=== PATIENT | male | born 1960 | race Caucasian/White ===

== ENCOUNTER 2022-10-15 21:19 | Inpatient (IN) ==
[2022-10-15] MEDS ORDERED: ALBUT/IPRATROP 3MG/0.5MG NEB 3 ML VIAL NEB STA ×2 (21:40→23:16)
--- NOTE | 2022-10-15 21:46 | Emergency Department Note ---
History of Present Illness General Chief complaint: Shortness of Breath/Dyspnea Stated complaint: SOB, COUGHING Time Seen by Provider: 10/15/22 21:31 History of Present Illness This 62-year-old presents to the ER complaining of epigastric heartburn discomfort and shortness of breath for the past 2 weeks steadily getting worse Location: Chest Quality: Short of breath Severity: Moderate Duration: Past few weeks Timing: Started few weeks ago Context: Symptoms got worse and patient came in Modifying factors: better with rest; worse with activity Patient states he initially started out feeling sick a few weeks ago but that is cleared up. He states he feels short of breath much more with activity. Patient denies abdominal pain, prior heart disease, blood clots in the past. He states that his legs are swollen but this is unchanged. Home Medications Medication Instructions Recorded Confirmed Type ibuprofen 200 mg tablet (Advil) 200 - 400 mg PO Q6H PRN Pain 05/20/21 10/15/22 History sildenafil (pulm.hypertension) 20 20 - 100 mg PO .COMPLEX #20 tabs 03/31/22 10/15/22 Rx mg tablet amlodipine 5 mg tablet 2.5 mg PO DAILY #30 tabs 04/14/22 10/15/22 Rx lisinopril 40 mg tablet 40 mg PO DAILY #30 tabs 07/28/22 10/15/22 Rx Allergies Allergy/AdvReac Type Severity Reaction Status Date / Time morphine Allergy Severe anaphalyaxi Verified 10/15/22 22:30 s Past Med/Surg History Medical History Acid reflux History of guy RLE Light headedness Vasovagal syncope 20 YEARS AGO Surgical History History of appendectomy History of skin graft History of umbilical hernia repair Family History Aunt Family history of diabetes mellitus Sister Family history of diabetes mellitus Grandfather Myocardial infarction Grandfather No problems noted. Grandmother Breast cancer Denies family history of Ovarian cancer Prostate cancer Colorectal cancer Social History Smoking Status: Current every day smoker Tobacco Type: Cigars Age Started Using Tobacco: 12; Age Quit Using Tobacco: 56; packs per day: 2; Cigarettes Per Day: 3-4 small cigars/day; Second Hand Exposure: Yes ( A CHILD); Hx Alcohol Use: Yes Alcohol type: beer Alcohol Intake Frequency: 4 or More x per/Week Hx Substance Use: No Preferred Language: South Korean Communication Ability: Effective Visual Impairment: No Limitations Hearing Ability: Normal Accredited Legal Secretary Required: No Beliefs That Will Affect Care: None marital status: Current Living Situation: Spouse current occupational status: employed 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 How many Children do You have: 4 Feels Safe at Home: Yes Childhood Exposure to Second-Hand Smoke: Yes caffeine: Yes during the past year weight has: remained stable Dental Care, Regularly: Yes Physical Activity Frequency: 1-2 Times per Week Seatbelt Use: sometimes Sunscreen Use: Yes (SOMETIMES) Assistive Devices: Glasses Review of Systems A total of 10 systems reviewed and were otherwise negative Physical Exam Vital Signs Vital Signs - 24 hr 10/15/22 21:21 10/15/22 21:52 10/15/22 21:52 Temperature 36.6 C Temperature Source Temporal Artery Scan Pulse Rate 85 Respiratory Rate 20 Respiratory Effort / Characteristics Non-Labored Spontaneous Respiratory Depth Normal Blood Pressure 169/92 H Blood Pressure Mean 117 Blood Pressure Position Sitting Pulse Oximetry 95 97 97 Oxygen Delivery Method Room Air Room Air Room Air Oxygen Flow Rate 0 Sepsis Recent Fever Within 48 Hours No Sepsis New/Unexplained Change in Mental Status N/A Sepsis Action Taken by Nursing No Action Required VITALS: Vitals are noted on the nurse's note and reviewed by myself. Vital signs stable. GENERAL: Pleasant gentleman speaking in full sentences, in no acute distress, nondiaphoretic, well-developed well-nourished. SKIN: The skin was without rashes, erythema, edema, or bruising. There is no tenting of the skin. Capillary reflex less than 2 seconds. HEAD: Normocephalic atraumatic. EARS: External auditory canals clear, EYES: Pupils equal round and reactive to light and accommodation. Conjunctivae without injection, sclerae without icterus. Extraocular movements intact. NOSE: Patent, turbinates without inflammation or discharge. MOUTH: Mucous membranes moist. Pharynx without erythema or exudate. Uvula midline. Airway patent. Tongue does not deviate. NECK: Supple without nuchal rigidity. No lymphadenopathy. No thyromegaly. Cervical spine is nontender. No JVD. HEART: Regular rate and rhythm LUNGS: Mild diffuse end expiratory wheezes, without rales or rhonchi. No retractions or accessory muscle use. ABDOMEN: Positive bowel sounds x 4. Normal tympanic percussion. Soft, nontender, without masses or organomegaly. Phelps sign negative. No guarding or rebound tenderness. No CVA tenderness MUSCULOSKELETAL: No muscle atrophy, erythema, noted. Trace pitting edema bilaterally. NEURO: Patient was alert and oriented to person place and time. Normal sens ation to light and sharp touch. No focal neurological deficits. Course Administered Medications Discontinued Medications Albuterol (Albut/Ipratrop 3mg/0.5mg Neb 3 Ml Vial) 3 ml NEB NOW STA; Protocol Stop: 10/15/22 21:41 Last Admin: 10/15/22 21:49 Dose: 3 ml Documented By: ALMA Albuterol (Albut/Ipratrop 3mg/0.5mg Neb 3 Ml Vial) 3 ml NEB NOW STA; Protocol Stop: 10/15/22 23:17 Last Admin: 10/15/22 23:31 Dose: 3 ml Documented By: ROSANGELA Dexamethasone Sodium Phosphate (DexamethasonePf 10 Mg/Ml Vial) 10 mg IV NOW ONE Stop: 10/15/22 23:17 Last Admin: 10/15/22 23:31 Dose: 10 mg Documented By: ROSANGELA Ioversol (Optiray 320 500ml) 115 ml IV ONCE ONE Stop: 10/15/22 22:11 Last Admin: 10/15/22 22:10 Dose: 115 ml Documented By: JASON Lorazepam (Lorazepam 2 Mg/1 Ml Vial) 1 mg IV NOW STA Stop: 10/15/22 23:17 Last Admin: 10/15/22 23:31 Dose: 1 mg Documented By: ROSANGELA Medical Decision Making Medical Records Attestation: I reviewed the patient's medical records. Home Medications Current Medication List: was personally reviewed by me Laboratory Data Attestation: I reviewed the patient's lab results. Result diagrams: 10/15/22 21:53 10/15/22 21:53 Lab Results 10/15/22 10/15/22 10/15/22 Range/Units 21:53 21:53 21:53 WBC 6.25 (4.8-10.8) K/ul RBC 4.74 (4.63-6.08) M/uL Hgb 16.2 (14.0-18.0) g/dl POC Hgb (14.0-18.0) g/dl Hct 44.7 (40.1-51.0) % POC Hct (42-52) % MCV 94.3 (80.0-100.0) fL MCH 34.2 H (25.0-34.0) pg MCHC 36.2 H (32.0-36.0) g/dL RDW Std Deviation 43.7 (36.4-46.3) fL RDW Coeff of Cole 12.5 (11.5-14.5) % Plt Count 262 (130-400) K/uL MPV 10.3 (9.4-12.4) fL Immature Gran % (Auto) 0.8 % Neut % (Auto) 42.1 % Lymph % (Auto) 42.1 % Towns % (Auto) 12.0 % Eos % (Auto) 2.4 % Baso % (Auto) 0.6 % Neut # (Auto) 2.63 (1.4-6.5) K/uL Lymph # (Auto) 2.63 (1.2-3.4) K/uL Towns # (Auto) 0.75 (0.24-0.82) K/uL Eos # (Auto) 0.15 (0-0.50) K/uL Baso # (Auto) 0.04 (0-0.2) K/uL Immature Gran # (Auto) 0.05 H (0.00-0.02) K/uL POC Sodium (135-144) mmol/L Sodium 137 (136-145) mmol/L POC Potassium (3.3-5.0) mmol/L Potassium 4.3 (3.5-5.1) mmol/L POC Chloride (101-112) mmol/L Chloride 107 (98-107) mmol/L Carbon Dioxide 22 (21-32) mmol/L POC Total CO2 (24-31) mmol/L Anion Gap 8 (3-11) POC Anion Gap (16-25) mmol/L POC BUN (7-18) mg/dl BUN 12 (6-23) mg/dl Creatinine 0.77 (0.6-1.4) mg/dl POC Creatinine (0.6-1.3) mg/dl Est Cr Clr Drug Dosing 125.5 ml/min Est GFR ( Amer) 111.9 ml/min Est GFR (Non-Af Amer) 96.6 ml/min BUN/Creatinine Ratio 15.6 (10-20) Glucose 102 H (70-99(Fasting)) mg/dl POC Glucose (other) (70-99) mg/dl Calcium 8.5 (8.5-10.1) mg/dl POC Ioniz Calcium Roslyn (1.12-1.32) mmol/l Total Bilirubin 0.4 (0.2-1.0) mg/dl AST 15 (13-39) U/L ALT 14 (7-52) U/L Alkaline Phosphatase 43 (34-104) U/L Troponin I High Sens 4.3 (0-20) pg/ml Total Protein 7.1 (6.0-8.3) gm/dl Albumin 3.9 (3.4-5.0) gm/dl Globulin 3.2 (2.5-4.0) gm/dl Albumin/Globulin Ratio 1.2 (0.9-2) Lipase 18 (11-82) U/L SARS-CoV-2 (PCR) NEGATIVE (Negative) Influenza Type A (PCR) Negative (Neg) Influenza Type B (PCR) Negative (Neg) RSV (RT-PCR) Negative (Neg) 10/15/22 Range/Units 21:54 WBC (4.8-10.8) K/ul RBC (4.63-6.08) M/uL Hgb (14.0-18.0) g/dl POC Hgb 16.0 (14.0-18.0) g/dl Hct (40.1-51.0) % POC Hct 47 (42-52) % MCV (80.0-100.0) fL MCH (25.0-34.0) pg MCHC (32.0-36.0) g/dL RDW Std Deviation (36.4-46.3) fL RDW Coeff of Cole (11.5-14.5) % Plt Count (130-400) K/uL MPV (9.4-12.4) fL Immature Gran % (Auto) % Neut % (Auto) % Lymph % (Auto) % Towns % (Auto) % Eos % (Auto) % Baso % (Auto) % Neut # (Auto) (1.4-6.5) K/uL Lymph # (Auto) (1.2-3.4) K/uL Towns # (Auto) (0.24-0.82) K/uL Eos # (Auto) (0-0.50) K/uL Baso # (Auto) (0-0.2) K/uL Immature Gran # (Auto) (0.00-0.02) K/uL POC Sodium 139 (135-144) mmol/L Sodium (136-145) mmol/L POC Potassium 4.1 (3.3-5.0) mmol/L Potassium (3.5-5.1) mmol/L POC Chloride 105 (101-112) mmol/L Chloride (98-107) mmol/L Carbon Dioxide (21-32) mmol/L POC Total CO2 24 (24-31) mmol/L Anion Gap (3-11) POC Anion Gap 16.0 (16-25) mmol/L POC BUN 11 (7-18) mg/dl BUN (6-23) mg/dl Creatinine (0.6-1.4) mg/dl POC Creatinine 0.8 (0.6-1.3) mg/dl Est Cr Clr Drug Dosing ml/min Est GFR ( Amer) ml/min Est GFR (Non-Af Amer) ml/min BUN/Creatinine Ratio (10-20) Glucose (70-99(Fasting)) mg/dl POC Glucose (other) 100 H (70-99) mg/dl Calcium (8.5-10.1) mg/dl POC Ioniz Calcium Roslyn 1.20 (1.12-1.32) mmol/l Total Bilirubin (0.2-1.0) mg/dl AST (13-39) U/L ALT (7-52) U/L Alkaline Phosphatase (34-104) U/L Troponin I High Sens (0-20) pg/ml Total Protein (6.0-8.3) gm/dl Albumin (3.4-5.0) gm/dl Globulin (2.5-4.0) gm/dl Albumin/Globulin Ratio (0.9-2) Lipase (11-82) U/L SARS-CoV-2 (PCR) (Negative) Influenza Type A (PCR) (Neg) Influenza Type B (PCR) (Neg) RSV (RT-PCR) (Neg) Imaging Data Attestation: I personally reviewed and interpreted this imaging study as follows: MDM Narrative Prior records/ancillary studies reviewed. Triage Nursing notes reviewed. Additional history obtained from the family. The patient's history was concerning for respiratory difficulties. Differential diagnosis: Etiologies such as infections, reactive airway disease, pneumonia, pneumothorax, COPD, CHF, cardiac ischemia, pulmonary embolism, musculoskeletal, gastrointestinal, as well as others were entertained. Physical examination: As above. ER treatment provided: An order was placed for continuous cardiac monitoring. The monitor shows a rate of 60-100 with a sinus rhythm. Nebulizer, Steroids, colchicine, aspirin On reassessment the patient felt better. Diagnostic interpretation by me: The electrocardiogram was negative for acute ischemic or pathologic change. Order for dyspnea EKG: Poor baseline, normal sinus, normal intervals, no acute ST-T wave changes. Impression normal sinus rhythm poor baseline rate 82 interpreted by myself I think arrhythmia is unlikely. EKG shows normal sinus rhythm with no interval abnormalities such as QT prolongation or WPW. There are no findings to suggest Brugada syndrome. Cardiac monitoring in the emergency department reveals no tachycardic or bradycardic dysrhythmia. Hypertrophic cardiomyopathy was considered but there are no clear historical elements pointing toward this. EKG is not suggestive. The QRS voltage is not extremely large and there are no suggestive Q waves. The labs revealed negative troponin and repeat was ordered. Lyme panel pending. Negative COVID. No worrisome leukocytosis Imaging studies: [facility] Patient: Ortiz CHRISTIANSEN (Male) : 58 Status: ER Date: 10/15/22 22:14 Room #: History: chest pain Slices: [id number] Priors: Xiomara: Julio Cervantes @ [phone] Exams: CTA CHEST Contrast: IV Amt: 115 ml optiray Accession Numbers: [id number] Referring Physician: REFERRED SELF Preliminary Findings Only See Final Report For Complete Findings CTA CHEST: No pulmonary embolism, as imaged, with mild breathing motion artifact limiting evaluation. The lungs are clear. Mild loculated pericardial effusion anteriorly, maximum 15 mm overlying the right ventricle. No overt CHF, pulmonary edema, pleural effusions or consolidation. Radiologist: Svitlana De Jesus M.D. HEART SCORE: Hx: high/mod/low suspicion: 0 ECG: ST depression/nonspecific changes/normal: 0 Age: Greater than 65/45-64/less than 45: 1 Risk factors: (Hypertension, hyperlipidemia, diabetes, coronary disease, tobacco use, cocaine use): 2 Troponin: Greater than 2 times normal limits/1-2 times normal limits/normal: 0 Total: 3 Consultation: A consultation was placed with the hospitalist. The case was discussed and diagnostics were reviewed. The patient was evaluated in the ER for further treatment. This appears to be consistent with Pericardial effusion who is short of breath. Patient states he is extremely short of breath when he lies flat. Medicine is consulted. He was given colchicine aspirin Decadron and nebulizers. He felt somewhat better. No signs of tamponade. He will be evaluated for adm ission. Repeat troponin was ordered. Lyme titers were added. By the evaluation outlined above emergent etiologies such as CHF, pulmonary embolism, reactive airway disease, pneumonia, pneumothorax, musculoskeletal, serious bacterial infections, as well as others were deemed relatively unlikely. The pt informed about the findings as listed above. All questions were answered and pleased with the treatment. The chart was completed utilizing [employer] Speech voice recognition software. Grammatical errors, random word insertions, pronoun errors, and incomplete sentences are an occassional consequence of this system due to software limitations, ambient noise, and hardware issues. Any formal questions or concerns about the content, text, or information contained within the body of this dictation should be directly addressed to the physician physician office assistant for clarification. Impression & Plan Acute pericardial effusion Discharge Plan Visit Data Chief Complaint: Shortness of Breath/Dyspnea Stated Complaint: SOB, COUGHING ED Provider: Janeth Reilly ED Midlevel Provider: Manuela Crawford Discharge Problem: Acute pericardial effusion Patient Disposition: Admitted As Inpatient Condition: Good Forms Stand Alone Forms: My [facility] Prescriptions Prescriptions: No Action sildenafil (pulm.hypertension) 20 mg tablet 20 - 100 mg PO .COMPLEX Qty: 20 5RF Rx Instructions: 20 - 100 mg PO ; administer doses at least 4-6 hours apart amlodipine 5 mg tablet 2.5 mg PO DAILY Qty: 30 2RF lisinopril 40 mg tablet 40 mg PO DAILY Qty: 30 2RF ibuprofen [Advil] 200 mg tablet 200 - 400 mg PO Q6H PRN (Reason: Pain) Referrals Referrals: Issac España DO [Primary Care Provider] -
[2022-10-15 21:59] LABS: Basophils # (auto) 0.04 K/uL (0-0.2); Basophils % (auto) 0.6 %; Eosinophils # (auto) 0.15 K/uL (0-0.50); Eosinophils % (auto) 2.4 %; Hematocrit (blood only) 44.7 % (40.1-51.0); Hemoglobin 16.2 g/dl (14.0-18.0); Immature Granulocytes # (auto) 0.05 K/uL (0.00-0.02); Immature Granulocytes % (auto) 0.8 %; Lymphocytes # (auto) 2.63 K/uL (1.2-3.4); Lymphocytes % (auto) 42.1 %; Mean Corpuscular Hemoglobin 34.2 pg (25.0-34.0); Mean Corpuscular Hgb Conc 36.2 g/dL (32.0-36.0); Mean Corpuscular Volume 94.3 fL (80.0-100.0); Mean Platelet Volume 10.3 fL (9.4-12.4); Monocytes # (auto) 0.75 K/uL (0.24-0.82); Neutrophils # (auto) 2.63 K/uL (1.4-6.5); Neutrophils % (auto) 42.1 %; Platelet Count 262 K/uL (130-400); RDW Coefficient of Variation 12.5 % (11.5-14.5); RDW Standard Deviation 43.7 fL (36.4-46.3); Red Blood Count 4.74 M/uL (4.63-6.08); White Blood Count 6.25 K/ul (4.8-10.8)
[2022-10-15 22:07] LABS: iSTAT Creatinine 0.8 mg/dl (0.6-1.3); iSTAT Ionized Calcium 1.2 mmol/l (1.12-1.32); iSTAT Potassium 4.1 mmol/L (3.3-5.0)
[2022-10-15] MEDS ORDERED: OPTIRAY 320 500ml IV ONE (22:10)
[2022-10-15 22:42] LABS: Influenza A virus by PCR Negative (Neg); Influenza B virus by PCR Negative (Neg); RSV by PCR Negative (Neg); SARS CoV2 RNA(COVID-19) Ceph NEGATIVE (Negative)
[2022-10-15 22:46] LABS: Troponin I High Sensitivity 4.3 pg/ml (0-20)
[2022-10-15 23:00] LABS: Potassium 4.3 mmol/L (3.5-5.1)
[2022-10-15 23:04] LABS: Albumin Globulin Ratio 1.2 (0.9-2); Albumin Level 3.9 gm/dl (3.4-5.0); BUN Creatinine Ratio 15.6 (10-20); Bilirubin,Total 0.4 mg/dl (0.2-1.0); Calcium 8.5 mg/dl (8.5-10.1); Creatinine Clr Calc Pharmacy 125.5 ml/min; Est GFR (African American) 111.9 ml/min; Est GFR (Non-African American) 96.6 ml/min; Globulin 3.2 gm/dl (2.5-4.0); Total Protein 7.1 gm/dl (6.0-8.3)
[2022-10-15] MEDS ORDERED: dexAMETHasone**PF** 10 MG/ML VIAL IV ONE (23:16)
[2022-10-15] MEDS ORDERED: LORazepam 2 MG/1 ML VIAL IV STA (23:16)
[2022-10-15] MEDS ORDERED: COLCHICINE 0.6 MG TAB PO ONE (23:48)
[2022-10-15] MEDS ORDERED: ASPIRIN CHEW 324 MG PO STA (23:48)
--- NOTE | 2022-10-16 00:13 | History & Physical Report ---
Date of Service October 16, 2022 Assessment & Plan (1) Acute pericardial effusion: Plan: Orestes Child is a 62-year-old male with past medical history of hypertension, tobacco use, erectile dysfunction who presented due to complaint of shortness of breath. Found to have pericardial effusion on chest CTA. Pericardial effusion Mild loculated pericardial effusion anteriorly, maximum 15 mm overlying the right ventricle per chest CTA stat rad read Of unknown etiology at this time, though he did report upper respiratory symptoms about 2 weeks ago likely viral However, Lyme antibodies ordered and pending No current signs of tamponade no hypotension, tachycardia, JVD Received aspirin 324 mg x 1 and colchicine 0.6 mg x 1 in the ED Will continue on colchicine 0.6 mg twice daily Switch aspirin for ibuprofen 600 mg 3 times daily in the morning Echocardiogram ordered Cardiology consulted Telemetry bed for cardiac monitoring Hypertension Continue home amlodipine and lisinopril Erectile dysfunction Patient takes sildenafil for this Initial chart review identifying sildenafil for pulmonary hypertension, but this does not seem to be the case Holding this med DVT prophylaxis: Lovenox SQ Diet: N.p.o., NSS at 100 cc/h Dispo: Admit to telemetry CODE STATUS: Full (2) Hypertension: (3) Erectile dysfunction: History of Present Illness Primary Care Provider: Issac España DO Orestes Child is a 62-year-old male with past medical history of hypertension, tobacco use, erectile dysfunction who presented due to complaint of shortness of breath. He states that starting about 2 weeks ago he began feeling sick, mostly with upper respiratory symptoms. He does say that he has a chronic cough and has been told by his PCP that he has chronic bronchitis, but the cough seems to be worse. He did have several episodes of chills, but never checked temperature. Some nasal congestion as well. Around that time, he states he began to feel somewhat short of breath and throughout these past 2 weeks it has been progressing. He states he also felt symptoms similar to heartburn. Feels that his shortness of breath is noticeable on exertion, but also has been preventing him from sleeping well. He says that it does feel worse when he is laying flat and that the only position in which he can catch his breath a little better is when he leans forward in a seated position and puts his elbows on his knees. He does spend a reasonable amount of time outside but denies having noticed any tick bites. Denies nausea, vomiting, abdominal pain, palpitations, headache, dizziness, numbness, weakness, rashes, joint aches. In the ED, patient had a chest CTA which showed "no pulmonary embolism, as imaged, with mild breathing motion artifact limiting evaluation. The lungs are clear. Mild loculated pericardial effusion anteriorly, maximum 15 mm overlying the right ventricle. No overt CHF, pulmonary edema, pleural effusions or c onsolidation." Lab work showed no leukocytosis, normal hemoglobin, normal platelet count. Normal electrolytes, mildly elevated glucose, negative troponin, normal LFTs. He had negative COVID, flu, RSV testing. Lyme antibodies ordered and pending. He was administered colchicine 0.6 mg p.o. x1, aspirin 324 mg p.o. x1, lorazepam 1 mg IV x1, dexamethasone 10 mg IV x1, DuoNeb's x2. Allergies Allergy/AdvReac Type Severity Reaction Status Date / Time morphine Allergy Severe anaphalyaxi Verified 10/15/22 22:30 s Home Medications Medication Instructions Recorded Confirmed Type sildenafil (pulm.hypertension) 20 20 - 100 mg PO .COMPLEX #20 tabs 03/31/2209/25 Rx mg tablet amlodipine 5 mg tablet 2.5 mg PO DAILY #30 tabs 04/14/22 10/15/22 Rx lisinopril 40 mg tablet 40 mg PO DAILY #30 tabs 07/28/22 10/15/22 Rx colchicine 0.6 mg tablet (Colcrys) 0.6 mg PO BID 3 months #180 tabs 10/16/22 Rx ibuprofen 600 mg tablet 600 mg PO Q8H #0 tabs 10/16/22 Rx pantoprazole 40 mg tablet,delayed 40 mg PO DAILY 6 weeks #42 tabs 10/16/22 Rx release (Protonix) Past Med/Surg History Medical History Acid reflux History of guy RLE Light headedness Vasovagal syncope 20 YEARS AGO Surgical History History of appendectomy History of skin graft History of umbilical hernia repair Family History Aunt Family history of diabetes mellitus Sister Family history of diabetes mellitus Grandfather Myocardial infarction Grandfather No problems noted. Grandmother Breast cancer Denies family history of Ovarian cancer Prostate cancer Colorectal cancer Social History Smoking Status: Current every day smoker Tobacco Type: Cigars Age Started Using Tobacco: 12; Age Quit Using Tobacco: 56; packs per day: 2; Cigarettes Per Day: 10 "small cigars" per day; Second Hand Exposure: No; Do You Dip or Chew Tobacco: No; Tobacco Cessation Education Requested by Patient: No Hx Alcohol Use: Yes Alcohol type: beer Alcohol Intake Frequency: 4 or More x pe r/Week Hx Substance Use: No Preferred Language: Mongolian Communication Ability: Effective Visual Impairment: No Limitations Hearing Ability: Normal Parts Consultant Required: No Beliefs That Will Affect Care: None marital status: Current Living Situation: Spouse Current Living Situation Comment: Owns home current occupational status: employed 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 NAD. HEENT: PERRL, EOMI. Moist mucous membranes. NECK: No JVD. No lymphadenopathy. CHEST/LUNGS: CTAB A/P. No crackles, wheezes, rales, rhonchi. HEART: RRR. No no murmurs, no friction rub. Heart sounds somewhat distant. ABDOMEN: NT/ND, soft. BS+ x4 EXTREMITIES: No cyanosis, no clubbing, no edema SKIN: Warm and dry. No rashes or lesions. PSYCHIATRIC: Euthymic affect, no SI, no pressured speech, no hallucinations NEUROLOGIC: No FND. CN II-XII grossly intact. Results & Data Results & Data ([facility]) Vital Signs (Past 12 Hours) Vital Signs Temp Pulse Resp BP Pulse Ox O2 Del Method O2 Flow Rate 10/15/22 21:52 97 Room Air 10/15/22 21:52 97 Room Air 0 10/15/22 21:21 36.6 C 85 20 169/92 H 95 Room Air Supervising Physician Co-Signing Physician Notes Attending addendum: I have physically seen this patient, have supervised the medical residents act ivities, and agree with the H&P unless as otherwise noted. Assessment and Plan: Mild loculated pericardial effusion- Anteriorly overlying right ventricle Noted on CTA chest The patient will be admitted to telemetry for serial cardiac enzymes, serial EKG's, cardiac rhythm monitoring and a 2-D echocardiogram with Dopplers. Colchicine 0.6 mg p.o. twice daily Aspirin 325 mg p.o. twice daily, may change to Motrin in the a.m. Consult cardiology Hypertension- Continue amlodipine and lisinopril with hold parameters Remaining orders and notations as noted Resident Activity Tracking Resident Involvement: Resident Care Provided Care Provided: Adult Hospital Medicine
[2022-10-16 01:57] LABS: Lyme Ab IgG w/WB Rflx Negative (Negative); Lyme Ab IgM w/WB Rflx Negative (Negative)
[2022-10-16] MEDS ORDERED: ONDANSETRON INJ 2 MG/ML 2 ML VIAL IV PRN (02:42)
[2022-10-16] MEDS ORDERED: SODIUM CHLORIDE 0.9% 1000ML 1,000 ML IV SCH (02:42)
[2022-10-16] MEDS ORDERED: MELATONIN 3 MG TAB PO PRN (02:42)
--- NOTE | 2022-10-16 08:25 | CT Scan Report ---
CHEST CTA for PULMONARY ARTERIES CT DOSE: 735.62 mGy.cm HISTORY: Atypical Chest Pain, eval for PE TECHNIQUE: Multiaxial CT images of the chest were performed following the intravenous administration of contrast to evaluate the pulmonary arteries. Maximal intensity projection images were also obtaine d. A dose lowering technique was utilized adhering to the principles of ALARA. COMPARISON STUDY: None. FINDINGS: Limited views of the upper abdomen demonstrate a normal spleen and adrenal glands. There is a 7 mm hypodense lesion within the right hepatic lobe which is technically too small to characterize but statistically benign. There is a small pericardial effusion. No pleural effusions. The heart is top normal in size. Normal caliber thoracic aorta with no evidence for a dissection. No filling defec ts within the pulmonary arteries to suggest a pulmonary embolus. No mediastinal or hilar lymphadenopa thy. No suspicious lytic or blastic osseous lesions. Mild bronchial wall thickening. No pneumothorax. Mild emphysema. There are few faint groundglass densities within the right upper lobe suggesting an inflammatory/infectious change. There is a 9 mm groundglass/cystic nodule within the right upper lobe on image 208. IMPRESSION: 1. Mild bronchial wall thickening with a few faint groundglass airspace opacity within the right uppe r lobe. This favors a mild infectious pneumonitis. 2. No evidence for pulmonary embolus. 3. A 9 mm groundglass/cystic nodule within the right upper lobe. This may also represent a component of the pneumonitis. However, [address] follow-up recommended to ensure resolution. 4. Mild emphysema. 5. Small pericardial effusion. 6. This report was called/faxed to the emergency department following dictation. ACT 112: Positive. There are findings on this exam that require communication between the performing entity and the patient following Patient Test Result Information Act ([place] Act 112) guidelines. Electronically signed by: Steve Miranda M.D. 10/16/2022 8:23 AM
--- NOTE | 2022-10-16 08:53 | XCELERA ---
[id number]
[2022-10-16] MEDS ORDERED: IBUPROFEN 600 MG TAB PO SCH (09:00)
[2022-10-16] MEDS ORDERED: lisinopril 40 MG TAB PO SCH (09:00)
[2022-10-16] MEDS ORDERED: COLCHICINE 0.6 MG TAB PO SCH (09:00)
[2022-10-16] MEDS ORDERED: PANTOprazole 40 MG TAB PO SCH (09:00)
[2022-10-16] MEDS ORDERED: amLODIPine BESYLATE 5 MG TAB PO SCH (09:00)
[2022-10-16] MEDS ORDERED: ENOXAPARIN INJ 40 MG/0.4 ML SYR SQ SCH (09:00)
--- NOTE | 2022-10-16 10:55 | Cardiology Consultation ---
Date of Consultation October 16, 2022 Assessment & Plan (1) Acute pericardial effusion: Echocardiogram today shows only a trace to small pericardial effusion. No clinical or echocardiographic signs of tamponade. Suspect effusion reactive to recent viral infection. No real typical signs/symptoms of pericarditis but has had some improvement with NSAIDs and this morning feeling well. No indication for pericardiocentesis and from a cardiac standpoint feel can be safely discharged later today. Recommendations: Check ESR/CRP Reasonable to continue current scheduled NSAIDs and taper over next 2 weeks. Continue colchicine for next month. Follow-up with repeat echo in 1 month. History of Present Illness Attending Physician: Hebert Choi History of Present Illness Mr. Child is a very pleasant 62-year-old man seen today in the ED due to pericardial effusion. Presented to ED yesterday after about 2 weeks of shortness of breath. States initially had viral symptoms with fever/chills that resolved. Shortness of breath worse with exertion and lying down persisted. Has had difficulty sleeping. No real chest pain. No palpitations, lower extremity edema. Mul tiple sick contacts at home. Thought he had bronchitis. Reports some improvement with symptoms at home taking ibuprofen. Presented last night because symptoms were not going away. In ED ECG with no ST changes, HS TropI, BNP negative. Chest CTA negative for PE but question of small pericardial effusion. Echo today showed normal biventricular size and function, mild LVH, mild AI. Normal IVC. Trace to small pericardial effusion with no signs of tamponade. No prior cardiac history. Other medical issues include GERD, hypertension. No family history of premature CAD. Social history: . Long-term smoker, now smoking cigars for the last 3 years. Significant alcohol use. [employer]. Allergies Allergy/AdvReac Type Severity Reaction Status Date / Time morphine Allergy Severe anaphalyaxi Verified 10/15/22 22:30 s Home Medications Medication Instructions Recorded Confirmed Type ibuprofen 200 mg tablet (Advil) 200 - 400 mg PO Q6H PRN Pain 05/20/21 10/15/22 History sildenafil (pulm.hypertension) 20 20 - 100 mg PO .COMPLEX #20 tabs 03/31/22 10/15/22 Rx mg tablet amlodipine 5 mg tablet 2.5 mg PO DAILY #30 tabs 04/14/22 10/15/22 Rx lisinopril 40 mg tablet 40 mg PO DAILY #30 tabs 10/04/22 12/22/22 Rx Patient History Medical History Acid reflux History of guy RLE Light headedness Vasovagal syncope 20 YEARS AGO Surgical History History of appendectomy History of skin graft History of umbilical hernia repair Family History Aunt Family history of diabetes mellitus Sister Family history of diabetes mellitus Grandfather Myocardial infarction Grandfather No problems noted. Grandmother Breast cancer Denies family history of Ovarian cancer Prostate cancer Colorectal cancer Social History Smoking Status: Current every day smoker Tobacco Type: Cigars Age Started Using Tobacco: 12; Age Quit Using Tobacco: 56; packs per day: 2; Cigarettes Per Day: 10 "small cigars" per day; Second Hand Exposure: No; Do You Dip or Chew Tobacco: No; Tobacco Cessation Education Requested by Patient: No Hx Alcohol Use: Yes Alcohol type: beer Alcohol Intake Frequency: 4 or More x per/Week Hx Substance Use: No Preferred Language: [place] Communication Ability: Effective Visual Impairment: No Limitations Hearing Ability: Normal Office Services Representative Required: No Beliefs That Will Affect Care: None marital status: Current Living Situation: Spouse Current Living Situation Comment: Owns home current occupational status: employed 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 How many Children do You have: 4 Other Information That Helps Us Care for You: No Feels Safe at Home: Yes Safety Concerns: Feels Safe At This Time Childhood Exposure to Second-Hand Smoke: Yes caffeine: Yes during the past year weight has: remained stable Dental Care, Regularly: Yes Physical Activity Frequency: 1-2 Times per Week Seatbelt Use: sometimes Sunscreen Use: Yes (SOMETIMES) Assistive Devices: None Review of Systems Review of Systems: All systems reviewed & are unremarkable except as noted in HPI & below Physical Exam Physical Exam: General: Comfortable HEENT: Sclerae anicteric Lungs: Clear to auscultation bilaterally, no crackles or wheezes Cardiac: Regular rate and rhythm, no murmurs or rubs. Vascular: 2+ radial, DP pulses. No bruits Abdomen: Soft, nontender Extremities: Well perfused, no peripheral edema Neuro: Nonfocal Psych: Alert orient x3, normal affect and mood Results & Data ([facility]) Vital Signs (Past 12 Hours) Vital Signs Temp Pulse Pulse Resp BP BP Pulse Ox 10/16/22 02:42 10/16/22 05:44 68 17 145/99 H 96 10/16/22 04:04 98.1 F 75 24 145/99 H 94 Pulse Ox O2 Del Method O2 Del Method 10/16/22 02:42 97 Room Air 10/16/22 05:44 Room Air 10/16/22 04:04 Room Air PG Care Time/CCT Total # of Minutes Spent Total Time Spent with Patient: Total time spent is greater than 50% in coordination of care (as documented) at patient's floor/unit and/or counseling patient: Coding Level of Care Code 42601 Office/OBS Consult Lvl 4 Diagnoses Acute pericardial effusion I30.9
--- NOTE | 2022-10-16 11:12 | Discharge Summary ---
Date of Service October 16, 2022 Admission HPI Per Admitting Provider Orestes Child is a 62-year-old male with past medical history of hypertension, tobacco use, erectile dysfunction who presented due to complaint of shortness of breath. He states that starting about 2 weeks ago he began feeling sick, mostly with upper respiratory symptoms. He does say that he has a chronic cough and has been told by his PCP that he has chronic bronchitis, but the cough seems to be worse. He did have several episodes of chills, but never checked temperature. Some nasal congestion as well. Around that time, he states he began to feel somewhat short of breath and throughout these past 2 weeks it has been progressing. He states he also felt symptoms similar to heartburn. Feels that his shortness of breath is noticeable on exertion, but also has been preventing him from sleeping well. He says that it does feel worse when he is laying flat and that the only position in which he can catch his breath a little better is when he leans forward in a seated position and puts his elbows on his knees. He does spend a reasonable amount of time outside but denies having noticed any tick bites. Denies nausea, vomiting, abdominal pain, palpitations, headache, dizziness, numbness, weakness, rashes, joint aches. In the ED, patient had a chest CTA which showed "no pulmonary embolism, as imaged, with mild breathing motion artifact limiting evaluation. The lungs are clear. Mild loculated pericardial effusion anteriorly, maximum 15 mm overlying the right ventricle. No overt CHF, pulmonary edema, pleural effusions or consolidation." Lab work showed no leukocytosis, normal hemoglobin, normal platelet count. Normal electrolytes, mildly elevated glucose, negative troponin, normal LFTs. He had negative COVID, flu, RSV testing. Lyme antibodies ordered and pending. He was administered colchicine 0.6 mg p.o. x1, aspirin 324 mg p.o. x1, lorazepam 1 mg IV x1, dexamethasone 10 mg IV x1, DuoNeb's x2. Admission Exam Per Admitting Provider GENERAL: A&Ox3. NAD. HEENT: PERRL, EOMI. Moist mucous membranes. NECK: No JVD. No lymphadenopathy. CHEST/LUNGS: CTAB A/P. No crackles, wheezes, rales, rhonchi. HEART: RRR. No no murmurs, no friction rub. Heart sounds somewhat distant. ABDOMEN: NT/ND, soft. BS+ x4 EXTREMITIES: No cyanosis, no clubbing, no edema SKIN: Warm and dry. No rashes or lesions. PSYCHIATRIC: Euthymic affect, no SI, no pressured speech, no hallucinations NEUROLOGIC: No FND. CN II-XII grossly intact. Principal Diagnosis Pericardial effusion Discharge Exam Constitutional WD/WN, vitals as above Eyes PERRL, conjunctivae normal, anicteric sclerae Respiratory normal respiratory effort, lungs clear to auscultation Cardiovascular S1 and S2, distant heart sound at LL sternal border, regular rate and rhythm, no murmurs. Gastrointestinal (Abdomen) normal bowel sounds, soft, nontender, no hepatosplenomegaly Psychiatric A+Ox3, euthymic affect Discharge Data Allergies Allergy/AdvReac Type Severity Reaction Status Date / Time morphine Allergy Severe anaphalyaxi Verified 10/15/22 22:30 s Consultations 10/15/22 23:56 ED Decision to Admit Stat 10/16/22 02:42 Consult Cardiology Routine Ordered Studies 10/15/22 21:40 CT angio chest PE protocol Urgent IMPRESSION: 1. Mild bronchial wall thickening with a few faint groundglass airspace opacity within the right upper lobe. This favors a mild infectious pneumonitis. 2. No evidence for pulmonary embolus. 3. A 9 mm groundglass/cystic nodule within the right upper lobe. This may also represent a component of the pneumonitis. However, [address] follow-up recommended to ensure resolution. 4. Mild emphysema. 5. Small pericardial effusion. 6. This report was called/faxed to the emergency department following dictation. Hospital Course (1) Acute pericardial effusion: Orestes Child is a 62-year-old male with past medical history of hypertension, tobacco use, erectile dysfunction who presented due to complaint of shortness of breath. Found to have pericardial effusion on chest CTA. Pericardial effusion -Mild loculated pericardial effusion anteriorly, maximum 15 mm overlying the right ventricle per chest CTA stat rad read -Of unknown etiology at this time, though he did report upper respiratory symptoms about 2 weeks ago likely viral. Lyme testing negative. -No signs of tamponade no hypotension, tachycardia, JVD -Echo EF 60-65%, no wall motion abnormalities, trace/small pericardial effusion with no echocardiographic sings of tamponade. -Patient given colchicine 0.6mg x1 ASA 324mg x1 in ED before transitioning to ibuprofen 600mg TID + colchicine 0.6mg BID. -Patient discharged with 3 month supply of colchicine 0.6mg BID, 1 month supply pantoprazole 40mg qAM, and told to keep taking ibuprofen 600mg TID for one month. -Cardiology consulted: Can trend ESR/CRP, continue scheduled NSAID and taper over next 2 weeks, continue colchicine for 1 month. Follow up echo at 1 month. -Can proceed with cardiology time frame recs if symptoms improving. (2) Hypertension: (3) Erectile dysfunction: Total Time Total Time Spent Total Time Spent (In Minutes): Please see attending attestation. Discharge Plan Discharge Items Patient Disposition: Home - Self-Care Reason For Visit: SOB Discharge Diagnosis: Pericardial effusion Condition on Discharge: Good Activity: Per Instructions section Non-emergency contact: Primary Care Provider Call non-emergency contact if: your symptoms worsen, your pain is worsening and your temperature is above 101 Follow-up/Referrals: Issac España, [Primary Care Provider] - Diet: Regular Addtl Attending Provider Instructions: You presented to the hospital for worsening shortness of breath after having an upper respiratory infection two weeks ago. Your blood work looked unremarkable, however upon imaging of your chest and heart you were found to have a small amount of fluid in the space between your heart and the sac that surrounds it. Given that it is so small and not causing much other issues we feel it is okay to continue treatment for decreasing the fluid at home. A discharge summary will be sent to your primary care physician to ensure continuity of care. Follow-up: * You should be seen by your primary physician within the next few weeks to ensure resolution. Medications: Your medication list has been reviewed and reconciled upon discharge to ensure accuracy and continuity of care. An updated list of all your medications is included with your hospital discharge paperwork. Please review this list closely, and make note of any changes. * A script for colchicine will be sent to your pharmacy. This medication will help bring down inflammation. Please take the 0.6mg (1 tablet) of colchicine twice a day for * Please continue to take 600mg of ibuprofen (3 tablets of 200mg) three times per day for Take your medications as instructed; do not skip a dose of your medicines. Make sure all of your doctors know every medicine you are taking (including qbxp-buo-sseypki medicines, vitamins, and supplements). let your primary care provider know before taking any new medicines because some of these may interact with your current medications, or may make your symptoms worse. CONTACT YOUR PRIMARY CARE PROVIDER if you experience any of the following: * Fevers or shaking chills * Shortness of breath not relieved by inhalers, fainting * Sudden abdominal distension not relieved by catheterization. * Difficulty following your treatment plan, or difficulty taking medications CALL 911 OR GO TO THE EMERGENCY DEPARTMENT if you experience any of the following: * Sudden, severe abdominal pain or nausea/vomiting * Severe chest pain, or chest pain that radiates (moves) to your jaw or arm * Sudden, severe shortness of breath or difficulty breathing It was was our pleasure taking care of you here at [facility] . Thank you for allowing us to participate in your care. Pending Studies at Discharge: No Stand-Alone Forms: My [facility], Smoking Cessation Medications and DC Order Prescriptions: New colchicine [Colcrys] 0.6 mg tablet 0.6 mg PO BID 90 Days Qty: 180 0RF pantoprazole [Protonix] 40 mg tablet,delayed release (DR/EC) 40 mg PO DAILY 42 Days Qty: 42 0RF ibuprofen 600 mg Tablet 600 mg PO Q8H Qty: 0 0RF Continued sildenafil (pulm.hypertension) 20 mg tablet 20 - 100 mg PO .COMPLEX Qty: 20 5RF Rx Instructions: 20 - 100 mg PO ; administer doses at least 4-6 hours apart amlodipine 5 mg tablet 2.5 mg PO DAILY Qty: 30 2RF lisinopril 40 mg tablet 40 mg PO DAILY Qty: 30 2RF Discontinued ibuprofen [Advil] 200 mg tablet 200 - 400 mg PO Q6H PRN (Reason: Pain) Discharge Orders: Discharge Order (Routine); Ordered 10/16/22 Ordered By: Benjamin Horton Admission Data Admit Date/Time: 10/16/22 00:25 Attending Provider: Hebert Choi Admit Provider: Steve Dodson Primary Care Provider: Issac España Other Providers: Houston Sanchez ; Isiah Solo Other Interventions: Discharge Summary Assessment (RN) Last Done: 10/16/22 11:29 Supervising Physician Co-Signing Physician Notes Attending addendum: I have physically seen this patient, have supervised the medical residents activities, and agree with the discharge summary unless as otherwise noted. Assessment and Plan: Mild loculated pericardial effusion- Anteriorly overlying right ventricle Noted on CTA chest appreciate input from cardiology: ok to discharge. Colchicine 0.6 mg p.o. twice daily will discharge on ibuprofen. Hypertension- Continue amlodipine and lisinopril with hold parameters Remaining orders and notations as noted Resident Activity Tracking Resident Involvement: Resident Care Provided Care Provided: Adult Hospital Medicine
--- NOTE | 2022-10-16 19:54 | Billing Data ---
Date of Service October 16, 2022 Coding Level of Care Code 44506 Initial Inpt Care Lvl 3
--- NOTE | 2022-10-16 22:48 | Electrocardiogram Report ---
Test Reason : Blood Pressure : / mmHG Vent. Rate : 082 BPM Atrial Rate : 082 BPM P-R Int : 156 ms QRS Dur : 074 ms QT Int : 360 ms P-R-T Axes : 035 024 026 degrees QTc Int : 420 ms Poor data quality, interpretation may be adversely affected Normal sinus rhythm Normal ECG When compared with ECG of 24-NOV-2021 21:20, No significant change was found Confirmed by Isiah Sool ([id number]) on 10/16/2022 10:48:07 PM Referred By: REFERRED SELF Confirmed By:Isiah Solo
--- NOTE | 2022-10-18 19:04 | Billing Data ---
Date of Service October 16, 2022 Coding Level of Care Code OBSERV/HOSP SAME DATE LVL 3
== END 2022-10-16 11:25 | disposition home or self-care (01) | DRG 316 ==
LOC: ED 21:19 → EDINP 10-16 00:25 → SUATTDRO 10-16 00:25 → EDINP 10-16 02:43

== ENCOUNTER 2022-12-09 17:35 | Observation (INO) ==
--- NOTE | 2022-12-09 17:53 | ED Triage Note ---
Date of Service December 09, 2022 History of Present Illness This patient was briefly evaluated while in triage. An abbreviated physical exam was performed. This patient is a 62-year-old Male with past medical history of pericarditis who presents to the ED for evaluation of occasional chest pain as well as left calf pain/swelling. Patient is currently being treated with colchicine for pericardiitis. Physical Exam VITALS: Vitals are noted on the nurse's note and reviewed by myself. GENERAL: This is a 62-year-old male, in no acute distress, well-developed well- nourished. SKIN: The skin was without rashes. HEART: Regular rate and rhythm without murmurs gallops or rubs. LUNGS: Clear to auscultation bilaterally without wheezes, rales or rhonchi. EXTREMITIES: Erythema noted to the right calf. Right calf tenderness. NEURO: Patient was alert and oriented to person place and time. Initial orders for labs and / or imaging were placed and patient was placed in the waiting area until a bed is available. Please see further documentation for the full ED course.
--- NOTE | 2022-12-09 18:16 | XRay Report ---
XR chest 1V portable CLINICAL HISTORY: Chest pain, nonspecific TECHNIQUE: Single frontal radiograph of the chest was obtained. Comparison: Comparison is made to chest radiograph 11/24/2021 FINDINGS: No lines and tubes are seen. Cardiomegaly is noted. The lungs are clear. No evidence of pleural effus ion or pneumothorax. IMPRESSION: No acute chest disease. ACT 112: Negative or not required by law. Electronically signed by: Nirav Ibrahim M.D. 12/09/2022 6:14 PM
--- NOTE | 2022-12-09 18:25 | Emergency Department Note ---
Impression & Plan Chest pain, Tobacco use disorder, Pericardial effusion ED Provider Note NAME: Ortiz CHRISTIANSEN AGE: 62 SEX: M : 1960 ARRIVES VIA: Walk-In INFORMANT: Patient, ED PROVIDER(S): Dharmesh Wilson MD CHIEF COMPLAINT: Chest pain MEDICAL DECISION MAKING: Patient presented due to concern for chronic shortness of breath as well as some substernal nonradiating chest pain. Blood work was obtained along with a chest x-ray and right lower extremity ultrasound. The patient's blood work shows a normal white count H&H and platelet count. Kidney function is unremarkable. The patient's troponin is not elevated. Chest x-ray is negative. DVT ultrasound negative. I did speak with the on-call cardiology service Dr. Solo and discussed the patient's current symptoms as well as his recent history with the echocardiogram and the most recent one showing a larger pericardial effusion. Given this concern in the late hour due to the inability to obtain an echocardiogram in the emergency department he recommends observation admission in order to obtain an echocardiogram as an inpatient. Patient was to resume his normal medications including his colchicine. I did speak the on-call hospitalist Dr. Pham and the patient was admitted to the medicine service. Prior /Outside records reviewed:Did review the patient's cardiology consultation from October 16 showed the patient had trace to small pericardial effusion no evidence of tamponade on echo. This is thought to be reactive to recent viral infection. I did review the patient's most recent echocardiogram from November 24 which showed normal LV size mild concentric LVH no regional wall motion abnormalities normal RV size and function with a small to medium anterior pericardial effusion with no echo cardiographic signs of tamponade. Pericardial effusion it has increased in size now small to moderate comparison echocardiogram completed Sep Differential diagnosis: Cardiac ischemia, aortic dissection, pulmonary embolism, pneumothorax, pneumonia, pericarditis, myocarditis, esophageal rupture, GERD, cholecystitis, pancreatitis, musculoskeletal, as well as other pathologies. Diagnostics, as interpreted by me: ECG: Normal sinus rhythm, rate of 75 normal intervals normal axis, T wave inversion V2 no ST elevations. No significant change for comparison EKG October 15, 2022 Cardiac monitoring: An order was placed for continuous cardiac monitoring. The monitor shows a rate of 87 with sinus rhythm. Patient was placed on pulse oximetry Medical decision rules: None Imaging studies: See below HPI: Patient presents due to concern for chest pains. The patient relates that this is in the setting of a recent diagnosed pericardial effusion. The patient states that he does feel like an aching or cramping located substernal and is nonradiating. It is intermittent in nature. Nonexertional. Patient does have occasional cough but is primarily nonproductive occasional foamy. The patient does use tobacco but denies any drug use. The patient has followed with Dr. Ibarra after he did have an admission back in September. The patient does not take anything for symptoms at home. The patient also was concerned as he did some leg swelling and thinks that he does have some right-sided calf pain. The patient did have the admission back in September but denies any recent surgeries procedures or recent prolonged car plane travel. Patient is not take anything for his pain PAST MEDICAL HISTORY: See Below PAST SURGICAL HISTORY: See Below SOCIAL HISTORY: See Below HOME MEDICATIONS: See Below ALLERGIES: See Below VITALS: See Below PHYSICAL EXAMINATION: GENERAL: NAD, wearing a mask, non-toxic. EYE EXAM: Normal conjunctiva. PERRL, no anisocoria and EOM's grossly intact w/o pain. NECK: Supple, no nuchal rigidity, no adenopathy, non-tender. No signs of meningismus. FROM of the neck with good chin to chest and neck extension. No stridor. LUNGS: Clear to auscultation. Normal chest wall mechanics. HEART: NSR, no MRG. ABDOMEN: Abdomen soft, non-tender, normo-active bowel sounds, no masses, no atul ound or guarding. BACK: No CVA TTP. SKIN: No rashes and no bruising. UPPER EXTREMITIES: Upper extremities are grossly normal. LOWER EXTREMITIES: Grossly normal, no edema. Right-sided calf pain. No e rythema no crepitus neurovascular tact distally. Positive Homans' sign. NEURO EXAM: A&O x3, cranial nerves II-XII grossly intact, normal speech, moves all 4 extremities. Past Med/Surg History Medical History Acid reflux Acute pericardial effusion History of guy RLE Light headedness Vasovagal syncope 20 YEARS AGO Surgical History History of appendectomy History of skin graft History of umbilical hernia repair Family History Aunt Family history of diabetes mellitus Sister Family history of diabetes mellitus Grandfather Myocardial infarction Grandfather No problems noted. Grandmother Breast cancer Denies family history of Ovarian cancer Prostate cancer Colorectal cancer Social History Smoking Status: Current every day smoker Tobacco Type: Cigars Age Started Using Tobacco: 12; Age Quit Using Tobacco: 56; packs per day: 2; Cigarettes Per Day: 8; Second Hand Exposure: No; Hx Alcohol Use: Yes Alcohol type: beer Alcohol Intake Frequency: 4 or More x per/Week Hx Substance Use: No Preferred Language: Monegasque Communication Ability: Effective Visual Impairment: No Limitations Hearing Ability: Normal Records Management Specialist Required: No Beliefs That Will Affect Care: None marital status: Current Living Situation: Spouse Current Living Situation Comment: Owns home current occupational status: employed 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 How many Children do You have: 4 Feels Safe at Home: Yes Childhood Exposure to Second-Hand Smoke: Yes caffeine: Yes during the past year weight has: remained stable Dental Care, Regularly: Yes Physical Activity Frequency: 1-2 Times per Week Seatbelt Use: sometimes Sunscreen Use: Yes (SOMETIMES) Assistive Devices: None Allergies Allergies Allergy/AdvReac Type Severity Reaction Status Date / Time morphine Allergy Severe anaphalyaxi Verified 12/09/22 18:48 s Home Meds Home Medications Medication Instructions Recorded Confirmed sildenafil (pulm.hypertension) 20 20 - 100 mg PO .COMPLEX PRN Sexual 12/09/22 12/09/22 mg tablet Activity Previous Rx's Medication Instructions Recorded colchicine 0.6 mg tablet (Colcrys) 0.6 mg PO BID 3 months #180 tabs 10/16/22 ibuprofen 600 mg tablet 600 mg PO Q8H #0 tabs 10/16/22 amlodipine 5 mg tablet 5 mg PO DAILY #30 tabs 11/02/22 lisinopril 40 mg tablet 40 mg PO DAILY #30 tabs 11/30/22 pantoprazole 40 mg tablet,delayed 40 mg PO DAILY 2 months #60 tabs 12/02/22 release (Protonix) hydroxyzine HCl 25 mg tablet 25 mg PO TID PRN anxiety #30 tabs 12/04/22 Results & Data (ED) Vital Signs Vital Signs - 24 hr 12/09/22 17:41 12/09/22 18:03 12/09/22 18:00 Temperature 36.2 C L Temperature Source Temporal Artery Scan Pulse Rate 90 85 Pulse Rate [Apical] Pulse Rate from SpO2 Sensor 84 Respiratory Rate 18 18 Respiratory Effort / Characteristics Non-Labored Spontaneous Respiratory Depth Normal Blood Pressure 152/83 H 136/92 Blood Pressure [Right Arm] Blood Pressure Mean 106 106 Blood Pressure Mean [Right Arm] Pulse Oximetry 97 98 97 Oxygen Delivery Method Room Air Room Air Room Air Sepsis Recent Fever Within 48 Hours No Sepsis New/Unexplained Change in Mental Status No Sepsis Action Taken by Nursing No Action Required 12/09/22 17:53 12/09/22 20:11 Temperature Temperature Source Pulse Rate 90 Pulse Rate [Apical] 70 Pulse Rate from SpO2 Sensor Respiratory Rate 18 Respiratory Effort / Characteristics Respiratory Depth Blood Pressure Blood Pressure [Right Arm] 118/77 Blood Pressure Mean Blood Pressure Mean [Right Arm] 90 Pulse Oximetry 93 Oxygen Delivery Method Room Air Sepsis Recent Fever Within 48 Hours Sepsis New/Unexplained Change in Mental Status Sepsis Action Taken by Skilled Nursing Medications Current Medication List: was personally reviewed by me Laboratory Data Attestation: I reviewed the patient's lab results. 12/09/22 18:00 12/09/22 18:00 Lab Results 12/09/22 12/09/22 12/09/22 Range/Units 18:00 18:00 18:00 WBC 7.49 (4.8-10.8) K/ul RBC 4.51 L (4.70-6.10) M/uL Hgb 15.2 (14.0-18.0) g/dl Hct 42.0 (42.0-52.0) % MCV 93.1 (80.0-100.0) fL MCH 33.7 (25.0-34.0) pg MCHC 36.2 H (32.0-36.0) g/dL RDW Std Deviation 45.4 (36.4-46.3) fL RDW Coeff of Cole 13.3 (11.5-14.5) % Plt Count 184 (130-400) K/uL MPV 11.0 (9.4-12.4) fL Immature Gran % (Auto) 0.3 % Neut % (Auto) 52.0 % Lymph % (Auto) 32.6 % [place] % (Auto) 13.0 % Eos % (Auto) 1.7 % Baso % (Auto) 0.4 % Neut # (Auto) 3.90 (1.40-6.50) K/uL Lymph # (Auto) 2.44 (1.2-3.4) K/uL [place] # (Auto) 0.97 H (0.11-0.59) K/uL Eos # (Auto) 0.13 (0-0.50) K/uL Baso # (Auto) 0.03 (0-0.2) K/uL Immature Gran # (Auto) 0.02 (0.01-0.20) K/uL PT 10.4 (9.0-12.0) Seconds INR 1.0 (0.9-1.1) APTT 28.5 (21.0-31.0) Seconds PTT Ratio 1.0 Sodium 138 (136-145) mmol/L Potassium 3.8 (3.5-5.1) mmol/L Chloride 110 H (98-107) mmol/L Carbon Dioxide 22 (21-32) mmol/L Anion Gap 6 (3-11) BUN 13 (6-23) mg/dl Creatinine 0.86 (0.6-1.4) mg/dl Est Cr Clr Drug Dosing 113.3 ml/min Est GFR ( Amer) 107.0 ml/min Est GFR (Non-Af Amer) 92.3 ml/min BUN/Creatinine Ratio 15.1 (10-20) Glucose 70 (70-99(Fasting)) mg/dl Calcium 9.3 (8.5-10.1) mg/dl Total Bilirubin 0.6 (0.2-1.0) mg/dl AST 27 (13-39) U/L ALT 23 (7-52) U/L Alkaline Phosphatase 48 (34-104) U/L Troponin I High Sens 4.9 (0-20) pg/ml Total Protein 7.2 (6.0-8.3) gm/dl Albumin 4.3 (3.4-5.0) gm/dl Globulin 2.9 (2.5-4.0) gm/dl Albumin/Globulin Ratio 1.5 (0.9-2) SARS-CoV-2, RNA, NAAT (NEGATIVE) 12/09/22 Range/Units 21:14 WBC (4.8-10.8) K/ul RBC (4.70-6.10) M/uL Hgb (14.0-18.0) g/dl Hct (42.0-52.0) % MCV (80.0-100.0) fL MCH (25.0-34.0) pg MCHC (32.0-36.0) g/dL RDW Std Deviation (36.4-46.3) fL RDW Coeff of Cole (11.5-14.5) % Plt Count (130-400) K/uL MPV (9.4-12.4) fL Immature Gran % (Auto) % Neut % (Auto) % Lymph % (Auto) % [place] % (Auto) % Eos % (Auto) % Baso % (Auto) % Neut # (Auto) (1.40-6.50) K/uL Lymph # (Auto) (1.2-3.4) K/uL [place] # (Auto) (0.11-0.59) K/uL Eos # (Auto) (0-0.50) K/uL Baso # (Auto) (0-0.2) K/uL Immature Gran # (Auto) (0.01-0.20) K/uL PT (9.0-12.0) Seconds INR (0.9-1.1) APTT (21.0-31.0) Seconds PTT Ratio Sodium (136-145) mmol/L Potassium (3.5-5.1) mmol/L Chloride (98-107) mmol/L Carbon Dioxide (21-32) mmol/L Anion Gap (3-11) BUN (6-23) mg/dl Creatinine (0.6-1.4) mg/dl Est Cr Clr Drug Dosing ml/min Est GFR ( Amer) ml/min Est GFR (Non-Af Amer) ml/min BUN/Creatinine Ratio (10-20) Glucose (70-99(Fasting)) mg/dl Calcium (8.5-10.1) mg/dl Total Bilirubin (0.2-1.0) mg/dl AST (13-39) U/L ALT (7-52) U/L Alkaline Phosphatase (34-104) U/L Troponin I High Sens (0-20) pg/ml Total Protein (6.0-8.3) gm/dl Albumin (3.4-5.0) gm/dl Globulin (2.5-4.0) gm/dl Albumin/Globulin Ratio (0.9-2) SARS-CoV-2, RNA, NAAT NEGATIVE (NEGATIVE) Administered Medications Discontinued Medications Albuterol (Albut/Ipratrop 3mg/0.5mg Neb 3 Ml Vial) 3 ml NEB QIDR TALHA; Protocol Stop: 01/09/23 06:59 Last Admin: 12/10/22 07:03 Dose: 3 ml Documented By: THEE Amlodipine Besylate (Amlodipine Besylate 5 Mg Tab) 5 mg PO DAILY TALHA Stop: 01/09/23 08:59 Last Admin: 12/10/22 08:45 Dose: 5 mg Documented By: ANDREW Colchicine (Colchicine 0.6 Mg Tab) 0.6 mg PO BID [facility] Stop: 01/08/23 22:44 Last Admin: 12/10/22 08:45 Dose: 0.6 mg Documented By: Admin: 12/10/22 00:07 Dose: 0.6 mg Documented By: TOO Guaifenesin (Guaifenesin 600 Mg Tabcr) 1,200 mg PO Q12 TALHA Stop: 01/09/23 08:59 Last Admin: 12/10/22 08:45 Dose: 1,200 mg Documented By: ANDREW Hydroxyzine HCl (Hydroxyzine Hcl 25 Mg Tab) 25 mg PO TID PRN PRN Reason: anxiety Stop: 01/08/23 22:44 Last Admin: 12/10/22 00:07 Dose: 25 mg Documented By: TOO Azithromycin 500 mg/ Dextrose 255 mls @ 125 mls/hr IV DAILY [facility] Stop: 12/17/22 08:59 Last Infusion: 12/10/22 11:16 Dose: 0 mls/hr Documented By: Admin: 12/10/22 08:45 Dose: 125 mls/hr Documented By: ANDREW Methylprednisolone 40 mg/ (Syringe) 0.64 mls @ 1.5 mls/min IV Q8H TALHA Stop: 01/08/23 23:29 Last Admin: 12/10/22 08:45 Dose: 1.5 mls/min Documented By: Admin: 12/10/22 00:07 Dose: 1.5 mls/min Documented By: TOO Lisinopril (Lisinopril 40 Mg Tab) 40 mg PO DAILY [facility] Stop: 01/09/23 08:59 Last Admin: 12/10/22 08:45 Dose: 40 mg Documented By: DTT Pantoprazole Sodium (Pantoprazole 40 Mg Tab) 40 mg PO DAILY [facility] Stop: 01/09/23 08:59 Last Admin: 12/10/22 08:45 Dose: 40 mg Documented By: DTT Imaging Data Radiologist's Impression: Chest X-Ray 12/09/22 17:43 XR chest 1V portable CLINICAL HISTORY: Chest pain, nonspecific TECHNIQUE: Single frontal radiograph of the chest was obtained. Comparison: Comparison is made to chest radiograph 11/24/2021 FINDINGS: No lines and tubes are seen. Cardiomegaly is noted. The lungs are clear. No evidence of pleural effusion or pneumothorax. IMPRESSION: No acute chest disease. ACT 112: Negative or not required by law. Electronically signed by: Nirav Ibrahim M.D. 12/09/2022 6:14 PM Discharge Plan Visit Data Chief Complaint: Chest Pain Stated Complaint: FLUID AROUND HEART, FLUID IN FOOT, CHEST PAIN ED Provider: Dharmesh Wilson Discharge Problem: Chest pain, Tobacco use disorder, Pericardial effusion Patient Disposition: Admitted As Inpatient Discharge Instructions Interventions: ED Discharge Assessment Last Done: 12/09/22 22:24
[2022-12-09 18:31] LABS: Basophils # (auto) 0.03 K/uL (0-0.2); Basophils % (auto) 0.4 %; Eosinophils # (auto) 0.13 K/uL (0-0.50); Eosinophils % (auto) 1.7 %; Hemoglobin 15.2 g/dl (14.0-18.0); Immature Granulocytes # (auto) 0.02 K/uL (0.01-0.20); Immature Granulocytes % (auto) 0.3 %; Lymphocytes # (auto) 2.44 K/uL (1.2-3.4); Lymphocytes % (auto) 32.6 %; Mean Corpuscular Hemoglobin 33.7 pg (25.0-34.0); Mean Corpuscular Hgb Conc 36.2 g/dL (32.0-36.0); Mean Corpuscular Volume 93.1 fL (80.0-100.0); Monocytes # (auto) 0.97 K/uL (0.11-0.59); Platelet Count 184 K/uL (130-400); RDW Coefficient of Variation 13.3 % (11.5-14.5); RDW Standard Deviation 45.4 fL (36.4-46.3); Red Blood Count 4.51 M/uL (4.70-6.10); White Blood Count 7.49 K/ul (4.8-10.8)
[2022-12-09 18:45] LABS: Albumin Globulin Ratio 1.5 (0.9-2); Albumin Level 4.3 gm/dl (3.4-5.0); BUN Creatinine Ratio 15.1 (10-20); Bilirubin,Total 0.6 mg/dl (0.2-1.0); Calcium 9.3 mg/dl (8.5-10.1); Creatinine Clr Calc Pharmacy 113.3 ml/min; Est GFR (Non-African American) 92.3 ml/min; Globulin 2.9 gm/dl (2.5-4.0); Potassium 3.8 mmol/L (3.5-5.1); Total Protein 7.2 gm/dl (6.0-8.3)
[2022-12-09 18:52] LABS: Troponin I High Sensitivity 4.9 pg/ml (0-20)
[2022-12-09 19:04] LABS: Partial Thromboplastin Time 28.5 Seconds (21.0-31.0); Prothrombin Time 10.4 Seconds (9.0-12.0)
--- NOTE | 2022-12-09 20:00 | Ultrasound Report ---
US venous doppler LE RT CLINICAL HISTORY: Right leg swelling, pain TECHNIQUE: Right lower extremity real-time compression venous ultrasound with Color Doppler imaging. Utilizing real-time ultrasonic imaging multiple real time high-resolution ultrasonic images with comp ression and noncompression maneuvers of the deep venous system in addition to color doppler imaging w ere performed from the common femoral vein through the proximal calf veins. COMPARISON: None available at the time of this dictation. FINDINGS/IMPRESSION: Currently there is normal compressibility of the deep venous system from the common femoral vein thro ugh the proximal calf veins. No superficial venous thrombosis is identified. ACT 112: Negative or not required by law. Electronically signed by: Nirav Ibrahim M.D. 12/09/2022 7:59 PM
--- NOTE | 2022-12-09 21:45 | History & Physical Report ---
Date of Service December 09, 2022 Assessment & Plan (1) Tobacco use disorder: (2) Alcohol abuse: (3) COPD with acute exacerbation: (4) Hypoglycemia: (5) Pulmonary nodule, right: (6) Hypertension: (7) Acute pericardial effusion: (8) Acid reflux: Plan Pericardial effusion- Continue colchicine 0.6 mg p.o. twice daily We will temporarily stop ibuprofen, as patient will be on Solu-Medrol IV Repeat echocardiogram and consult cardiology Acute COPD exacerbation- Patient with diffuse wheezing on examination, likely secondary to tobacco abuse. Likely at the very least contributing to if not causing his shortness of breath symptomatology Methylprednisolone 40 mg IV every 8 hours Duonebs every 4 hours while awake and every 2 hours when necessary. Guaifenesin extended release 12 mg p.o. every 12 hours Azithromycin 500 mg IV daily Alcohol abuse- Patient averages 6-7 drinks daily If the patient is in the hospital for more than 24 to 48 hours, he will need to have the [facility] protocol activated Cessation counseling Tobacco abuse- Patient has pulmonary nodule that will need to be followed, and a significant part of his symptomatology with COPD exacerbation is likely being triggered by tobacco use Cessation counseling Hypoglycemia- Glucose 70 on admission Patient reports recently decreased appetite Sugar this admission, would likely be increased while on steroids Hypertension- Continue amlodipine and lisinopril GERD- Continue pantoprazole Pulmonary nodule- 9 mm right upper lobe pulmonary nodule noted on CTA of chest on 10/15/2022 Advised by radiology was to repeat CT in 6 months from that date If patient breathing is improved enough that he can lie flat for long of interval time, could repeat CT this admission. History of Present Illness Chief Complaint: The patient presents to the emergency department due to more acute worsening of chronic shortness of breath and chest discomfort over the past few days, especially when trying to lie backwards. Primary Care Provider: Issac España DO The patient is a 62-year-old male with a past medical history including pericardial effusion, hypertension, GERD, erectile dysfunction, and tobacco use disorder. He reports that since his admission on 10/16/2022 where he was diagnosed with a loculated pericardial effusion, he has never really returned to normal breathing pattern, and has always been short of breath. He has continued to take ibuprofen 600 mg p.o. every 8 hours and colchicine 0.6 mg p.o. twice daily, along with his other usual medications. On the advice of cardiology consult by the ED over the telephone, patient will be admitted for repeat echocardiogram and assessment of pericardial effusion. Allergies Allergy/AdvReac Type Severity Reaction Status Date / Time morphine Allergy Severe anaphalyaxi Verified 12/09/22 18:48 s Home Medications Medication Instructions Recorded Confirmed Type colchicine 0.6 mg tablet (Colcrys) 0.6 mg PO BID 3 months #180 tabs 10/16/22 12/09/22 Rx ibuprofen 600 mg tablet 600 mg PO Q8H #0 tabs 10/16/22 12/09/22 Rx amlodipine 5 mg tablet 5 mg PO DAILY #30 tabs 11/02/22 12/09/22 Rx lisinopril 40 mg tablet 40 mg PO DAILY #30 tabs 11/30/22 12/09/22 Rx pantoprazole 40 mg tablet,delayed 40 mg PO DAILY 2 months #60 tabs 12/02/22 12/09/22 Rx release (Protonix) hydroxyzine HCl 25 mg tablet 25 mg PO TID PRN anxiety #30 tabs 12/04/22 12/09/22 Rx sildenafil (pulm.hypertension) 20 20 - 100 mg PO .COMPLEX PRN Sexual 12/09/22 12/09/22 History mg tablet Activity Past Med/Surg History Medical History (Updated 12/10/22 @ 04:21 by Houston Sanchez MD) Acid reflux Acute pericardial effusion History of guy RLE Light headedness Vasovagal syncope 20 YEARS AGO Surgical History History of appendectomy History of skin graft History of umbilical hernia repair Family History Aunt Family history of diabetes mellitus Sister Family history of diabetes mellitus Grandfather Myocardial infarction Grandfather No problems noted. Grandmother Breast cancer Denies family history of Ovarian cancer Prostate cancer Colorectal cancer Social History Smoking Status: Current every day smoker Tobacco Type: Cigars Age Started Using Tobacco: 12; Age Quit Using Tobacco: 56; packs per day: 2; Cigarettes Per Day: 8; Second Hand Exposure: No; Hx Alcohol Use: Yes Alcohol type: beer Alcohol Intake Frequency: 4 or More x per/Week Hx Substance Use: No Preferred Language: Turkish Communication Ability: Effective Visual Impairment: No Limitations Hearing Ability: Normal Supermarket Manager Required: No Beliefs That Will Affect Care: None marital status: Current Living Situation: Spouse Current Living Situation Comment: Owns home current occupational status: employed 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 How many Children do You have: 4 Other Information That Helps Us Care for You: No Feels Safe at Home: Yes Safety Concerns: Feels Safe At This Time Childhood Exposure to Second-Hand Smoke: Yes caffeine: Yes during the past year weight has: remained stable Dental Care, Regularly: Yes Physical Activity Frequency: 1-2 Times per Week Seatbelt Use: sometimes Sunscreen Use: Yes (SOMETIMES) Assistive Devices: None Review of Systems Review of Systems: The patient denies palpitations, cough, lower extremity swelling, sore throat, fevers, chills, sweats, nausea, vomiting, diarrhea , constipation, abdominal pain, pelvic pain, blood in urine or stool, dysuria, urinary frequency or urgency, lightheadedness, dizziness, headache, memory loss, loss of consciousness, rash, abnormal bruising or bleeding, imbalance, focal or generalized weakness, numbness or tingling in arms or legs, generalized arthralgias or myalgias, back or neck pain, or night sweats. The review of systems is otherwise negative other than for that already noted above, and at least 10 systems have been reviewed. Physical Exam Physical Exam: The patient is awake, alert and oriented 3, well developed and well nourished, normocephalic and atraumatic, lying in bed and in no acute distress. HEENT--PERRL, EOMI, mucous membranes and oropharynx normal. Neck--supple. No JVD. No bruits. Thyroid normal, trachea midline, no adenopathy. Heart--normal S1 and S2. No murmurs, rubs or gallops. Lungs--wheezes throughout bilaterally. No respiratory distress, no accessory muscle use. Abdomen--normal bowel sounds and soft. Nontender. Nondistended, no hernias or masses, no organomegaly. Obese Extremities--no cyanosis or clubbing. No edema. Dermatologic--normal skin turgor, normal color, no abnormal lymph nodes, no rash. Neurologic--cranial nerves II through XII grossly intact. Rheumatologic--normal range of motion. Psychiatric--normal affect. Results & Data Results & Data ([facility]) Vital Signs (Past 12 Hours) Vital Signs Temp Pulse Pulse Resp BP BP Pulse Ox 12/09/22 20:11 70 18 118/77 93 12/09/22 17:53 90 12/09/22 18:00 85 18 136/92 97 12/09/22 18:03 98 12/09/22 17:41 36.2 C L 90 18 152/83 H 97 O2 Del Method 12/09/22 20:11 Room Air 12/09/22 17:53 12/09/22 18:00 Room Air 12/09/22 18:03 Room Air 12/09/22 17:41 Room Air Laboratory Results Laboratory Results WBC 7.49 K/ul (4.8-10.8) 12/09/22 18:00 RBC 4.51 M/uL (4.70-6.10) L 12/09/22 18:00 Hgb 15.2 g/dl (14.0-18.0) 12/09/22 18:00 Hct 42.0 % (42.0-52.0) 12/09/22 18:00 MCV 93.1 fL (80.0-100.0) 12/09/22 18:00 MCH 33.7 pg (25.0-34.0) 12/09/22 18:00 MCHC 36.2 g/dL (32.0-36.0) H 12/09/22 18:00 RDW Std Deviation 45.4 fL (36.4-46.3) 12/09/22 18:00 RDW Coeff of Cole 13.3 % (11.5-14.5) 12/09/22 18:00 Plt Count 184 K/uL (130-400) 12/09/22 18:00 MPV 11.0 fL (9.4-12.4) 12/09/22 18:00 Immature Gran % (Auto) 0.3 % 12/09/22 18:00 Neut % (Auto) 52.0 % 12/09/22 18:00 Lymph % (Auto) 32.6 % 12/09/22 18:00 Sabine % (Auto) 13.0 % 12/09/22 18:00 Eos % (Auto) 1.7 % 12/09/22 18:00 Baso % (Auto) 0.4 % 12/09/22 18:00 Neut # (Auto) 3.90 K/uL (1.40-6.50) 12/09/22 18:00 Lymph # (Auto) 2.44 K/uL (1.2-3.4) 12/09/22 18:00 Sabine # (Auto) 0.97 K/uL (0.11-0.59) H 12/09/22 18:00 Eos # (Auto) 0.13 K/uL (0-0.50) 12/09/22 18:00 Baso # (Auto) 0.03 K/uL (0-0.2) 12/09/22 18:00 Immature Gran # (Auto) 0.02 K/uL (0.01-0.20) 12/09/22 18:00 PT 10.4 Seconds (9.0-12.0) 12/09/22 18:00 INR 1.0 (0.9-1.1) 12/09/22 18:00 APTT 28.5 Seconds (21.0-31.0) 12/09/22 18:00 PTT Ratio 1.0 12/09/22 18:00 Sodium 138 mmol/L (136-145) 12/09/22 18:00 Potassium 3.8 mmol/L (3.5-5.1) 12/09/22 18:00 Chloride 110 mmol/L (98-107) H 12/09/22 18:00 Carbon Dioxide 22 mmol/L (21-32) 12/09/22 18:00 Anion Gap 6 (3-11) 12/09/22 18:00 BUN 13 mg/dl (6-23) 12/09/22 18:00 Creatinine 0.86 mg/dl (0.6-1.4) 12/09/22 18:00 Est Cr Clr Drug Dosing 113.3 ml/min 12/09/22 18:00 Est GFR ( Amer) 107.0 ml/min 12/09/22 18:00 Est GFR (Non-Af Amer) 92.3 ml/min 12/09/22 18:00 BUN/Creatinine Ratio 15.1 (10-20) 12/09/22 18:00 Glucose 70 mg/dl (70-99(Fasting)) 12/09/22 18:00 Calcium 9.3 mg/dl (8.5-10.1) 12/09/22 18:00 Total Bilirubin 0.6 mg/dl (0.2-1.0) 12/09/22 18:00 AST 27 U/L (13-39) 12/09/22 18:00 ALT 23 U/L (7-52) 12/09/22 18:00 Alkaline Phosphatase 48 U/L (34-104) 12/09/22 18:00 Troponin I High Sens 4.9 pg/ml (0-20) 12/09/22 18:00 Total Protein 7.2 gm/dl (6.0-8.3) 12/09/22 18:00 Albumin 4.3 gm/dl (3.4-5.0) 12/09/22 18:00 Globulin 2.9 gm/dl (2.5-4.0) 12/09/22 18:00 Albumin/Globulin Ratio 1.5 (0.9-2) 12/09/22 18:00 SARS-CoV-2, RNA, NAAT NEGATIVE (NEGATIVE) 12/09/22 21:14 Impressions Chest X-Ray 12/09/22 17:43 XR chest 1V portable CLINICAL HISTORY: Chest pain, nonspecific TECHNIQUE: Single frontal radiograph of the chest was obtained. Comparison: Comparison is made to chest radiograph 11/24/2021 FINDINGS: No lines and tubes are seen. Cardiomegaly is noted. The lungs are clear. No evidence of pleural effusion or pneumothorax. IMPRESSION: No acute chest disease. ACT 112: Negative or not required by law. Electronically signed by: Nirav Ibrahim M.D. 12/09/2022 6:14 PM Venous Doppler Study 12/09/22 17:43 US venous doppler LE CLINICAL HISTORY: Right leg swelling, pain TECHNIQUE: Right lower extremity real-time compression venous ultrasound with Color Doppler imaging. Utilizing real-time ultrasonic imaging multiple real time high-resolution ultrasonic images with compression and noncompression maneuvers of the deep venous system in addition to color doppler imaging were performed from the common femoral vein through the proximal calf veins. COMPARISON: None available at the time of this dictation. FINDINGS/IMPRESSION: Currently there is normal compressibility of the deep venous system from the common femoral vein through the proximal calf veins. No superficial venous thrombosis is identified. ACT 112: Negative or not required by law. Electronically signed by: Nirav Ibrahim M.D. 12/09/2022 7:59 PM Code Status & VTE Plan Code Status Full code VTE Prophylaxis Plan VTE Prophylaxis will be ordered: Yes PG Care Time/CCT Total # of Minutes Spent Total Time Spent with Patient: Total time spent is greater than 50% in coordination of care (as documented) at patient's floor/unit and/or counseling patient: Coding Level of Care Code 27712 INT INP/OBS CARE 375MIN Diagnoses Tobacco use disorder F17.200 Alcohol abuse F10.10 COPD with acute exacerbation J44.1 Hypoglycemia E16.2 Pulmonary nodule, right R91.1 Hypertension I10 Acute pericardial effusion I30.9 Acid reflux K21.9
[2022-12-09] MEDS ORDERED: ONDANSETRON INJ 2 MG/ML 2 ML VIAL IV PRN (22:45)
[2022-12-09] MEDS ORDERED: ACETAMINOPHEN 325 MG TAB PO PRN (22:45)
[2022-12-09] MEDS ORDERED: hydrOXYzine HCl 25 MG TAB PO PRN (22:45)
[2022-12-10] MEDS: methylPREDNISolone 40 MG in SYRINGE 0 ML IV SCH ×2 (00:07→08:45)
[2022-12-10] MEDS: COLCHICINE 0.6 MG TAB PO SCH ×2 (00:07→08:45)
[2022-12-10] MEDS ORDERED: ALBUT/IPRATROP 3MG/0.5MG NEB 3 ML VIAL NEB SCH (07:00)
[2022-12-10 07:23] LABS: Basophils # (auto) 0.02 K/uL (0-0.2); Basophils % (auto) 0.5 %; Hematocrit (blood only) 44.2 % (42.0-52.0); Immature Granulocytes # (auto) 0.02 K/uL (0.01-0.20); Immature Granulocytes % (auto) 0.5 %; Lymphocytes # (auto) 0.65 K/uL (1.2-3.4); Lymphocytes % (auto) 14.7 %; Mean Corpuscular Hemoglobin 33.5 pg (25.0-34.0); Mean Corpuscular Hgb Conc 36.2 g/dL (32.0-36.0); Mean Corpuscular Volume 92.5 fL (80.0-100.0); Mean Platelet Volume 11.1 fL (9.4-12.4); Monocytes # (auto) 0.12 K/uL (0.11-0.59); Monocytes % (auto) 2.7 %; Neutrophils % (auto) 81.6 %; Platelet Count 190 K/uL (130-400); RDW Coefficient of Variation 13.2 % (11.5-14.5); RDW Standard Deviation 45.3 fL (36.4-46.3); Red Blood Count 4.78 M/uL (4.70-6.10); White Blood Count 4.41 K/ul (4.8-10.8)
[2022-12-10 07:40] LABS: Calcium 9.2 mg/dl (8.5-10.1); Creatinine Clr Calc Pharmacy 112.2 ml/min; Est GFR (Non-African American) 92.3 ml/min; Phosphorus 3.6 mg/dl (2.5-4.9); Potassium 4.5 mmol/L (3.5-5.1)
[2022-12-10] MEDS ORDERED: amLODIPine BESYLATE 5 MG TAB PO SCH (09:00)
[2022-12-10] MEDS ORDERED: AZITHROMYCIN 500 MG in DEXTROSE 5% 250 ML IV SCH (09:00)
[2022-12-10] MEDS ORDERED: guaiFENesin 600 MG TABCR PO SCH (09:00)
[2022-12-10] MEDS ORDERED: PANTOprazole 40 MG TAB PO SCH (09:00)
[2022-12-10] MEDS ORDERED: lisinopril 40 MG TAB PO SCH (09:00)
--- NOTE | 2022-12-10 09:44 | Electrocardiogram Report ---
Test Reason : Blood Pressure : / mmHG Vent. Rate : 075 BPM Atrial Rate : 075 BPM P-R Int : 166 ms QRS Dur : 088 ms QT Int : 382 ms P-R-T Axes : 040 031 031 degrees QTc Int : 426 ms Normal sinus rhythm Normal ECG When compared with ECG of 15-OCT-2022 21:45, No significant change was found Confirmed by Stanton Ridley ([id number]) on 12/10/2022 9:44:50 AM Referred By: REFERRED SELF Confirmed By:Heriberto Ridley
--- NOTE | 2022-12-10 09:45 | Hospitalist Progress Note ---
Date of Service December 10, 2022 Assessment & Plan (1) Acute pericardial effusion: Plan: Pericardial effusion- Continue colchicine 0.6 mg p.o. twice daily We will temporarily stop ibuprofen, as patient will be on Solu-Medrol IV Repeat echocardiogram and consult cardiology (2) COPD with acute exacerbation: Plan: Acute COPD exacerbation-moderate risk the patient Patient with diffuse wheezing on examination, likely secondary to tobacco abuse. Methylprednisolone 40 mg IV every 8 hours Duonebs every 4 hours while awake and every 2 hours when necessary. Guaifenesin extended release 12 mg p.o. every 12 hours Azithromycin 500 mg IV daily (3) Alcohol abuse: Plan: Alcohol abuse-chronic with significant risk of withdrawal occurs. Vital signs are stable Patient averages 6-7 drinks daily If the patient is in the hospital for more than 24 to 48 hours, he will need to have the [facility] protocol activated Cessation counseling (4) Hypoglycemia: (5) Hypertension: Plan: Chronic stable continue management Continue amlodipine and lisinopril (6) Tobacco use disorder: Plan: Tobacco abuse-chronic Patient has pulmonary nodule that will need to be followed, and a significant part of his symptomatology with COPD exacerbation is likely being triggered by tobacco use Cessation counseling (7) Pulmonary nodule, right: Plan: Pulmonary nodule- 9 mm right upper lobe pulmonary nodule noted on CTA of chest on 10/15/2022 Advised by radiology was to repeat CT in 6 months from that date If patient breathing is improved enough that he can lie flat for long of interval time, could repeat CT this admission. Admission and Anticipated Discharge Date Admission Date: December 09, 2022 Results & Data Results & Data ([facility]) Vital Signs (Past 12 Hours) Vital Signs Temp Pulse Pulse Resp BP Pulse Ox O2 Del Method 12/10/22 07:41 98.2 F 89 18 149/87 H 95 Room Air 12/10/22 07:03 70 16 97 Room Air 12/10/22 02:59 97.9 F 86 20 150/81 H 94 Room Air 12/10/22 00:25 64 12/09/22 22:54 Room Air 12/09/22 22:30 97.5 F L 78 22 148/92 H 97 Room Air 12/09/22 22:11 66 20 124/68 94 Room Air 12/09/22 22:01 65 Laboratory Results Reviewed CBC Reviewed chemistry panel PG Care Time/CCT Total # of Minutes Spent Total Time Spent with Patient: Total time spent is greater than 50% in coordination of care (as documented) at patient's floor/unit and/or counseling patient: Coding Diagnoses Acute pericardial effusion I30.9 COPD with acute exacerbation J44.1 Alcohol abuse F10.10 Hypoglycemia E16.2 Hypertension I10 Tobacco use disorder F17.200 Pulmonary nodule, right R91.1
--- NOTE | 2022-12-10 10:06 | Cardiology Consultation ---
Date of Consultation December 10, 2022 Assessment & Plan (1) Pericardial effusion: 2. Suspected COPD, possible acute exacerbation 3. Ongoing tobacco use 4. Significant alcohol use Repeat echocardiogram today shows smaller pericardial effusion, no signs of cardiac tamponade. No EKG or clinical signs of acute pericarditis. Low suspicion that patient's current symptoms are secondary to residual pericardial disease. From a cardiac standpoint okay with discharge today. Has scheduled follow-up with me next week. On steroids currently for COPD exacerbation. If not needed from a lung standpoint transition back to ibuprofen 200mg TID and will continue slow taper. Continue current colchicine. History of Present Illness Attending Physician: Car Quigley MD History of Present Illness Mr. Child is a very pleasant 62-year-old man seen today in the setting of known pericardial effusion and recurrent shortness of breath. Patient was previously seen 09/2022 in the setting of viral symptoms and was noted on CT scan at that time to have a small pericardial effusion. Echo showed small pericardial effusion with no signs of tamponade. Was discharged on NSAIDs, colchicine. In the interim 11/23/2022 had repeat limited echo which showed slight increase in pericardial effusion size with pericardial effusion debris potentially consistent with hematoma. Again no signs of tamponade. Today states that initially after hospitalization was feeling better breathing gradually improving. Yesterday felt that his breathing was slightly worse and more concerning to patient was new right lower extremity swelling, redness. Due to symptoms presented to ED, EKG unchanged. HS TropI unremarkable. Had lower extremity venous duplex negative for DVT. Started on Solu-Medrol for possible COPD exacerbation. Repeat echo this morning shows normal biventricular size and function. Pericardial effusion appears smaller than 2 weeks ago, again no signs of tamponade. Today patient states feeling well. Denies any real chest pain. Reports only brief episodes, lasting seconds of intermittent pulling chest pain over the last month. No increase recently. Has reduced NSAIDs from 600 to 200 mg every 8 hours. Still taking colchicine. Does report some dyspnea on exertion and occasional orthopnea. States that used to exercise frequently but this seems to be several years ago. No palpitations. Continues to smoke, now down to a third of a pack a day. No prior cardiac history. Other medical issues include GERD, hypertension. No family history of premature CAD. Social history: . Long-term smoker, now smoking cigars for the last 3 years. Significant alcohol use. 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 Allergies Allergy/AdvReac Type Severity Reaction Status Date / Time morphine Allergy Severe anaphalyaxi Verified 12/09/22 18:48 s Home Medications Medication Instructions Recorded Confirmed Type colchicine 0.6 mg tablet (Colcrys) 0.6 mg PO BID 3 months #180 tabs 10/16/22 12/09/22 Rx ibuprofen 600 mg tablet 600 mg PO Q8H #0 tabs 10/16/22 12/09/22 Rx amlodipine 5 mg tablet 5 mg PO DAILY #30 tabs 11/02/22 12/09/22 Rx lisinopril 40 mg tablet 40 mg PO DAILY #30 tabs 11/30/22 12/09/22 Rx pantoprazole 40 mg tablet,delayed 40 mg PO DAILY 2 months #60 tabs 12/02/22 12/09/22 Rx release (Protonix) hydroxyzine HCl 25 mg tablet 25 mg PO TID PRN anxiety #30 tabs 12/04/22 12/09/22 Rx sildenafil (pulm.hypertension) 20 20 - 100 mg PO .COMPLEX PRN Sexual 12/09/22 12/09/22 History mg tablet Activity Patient History Medical History (Updated 12/10/22 @ 10:12 by Ramírez Ibarra MD) Acid reflux Acute pericardial effusion History of guy RLE Light headedness Vasovagal syncope 20 YEARS AGO Surgical History History of appendectomy History of skin graft History of umbilical hernia repair Family History Aunt Family history of diabetes mellitus Sister Family history of diabetes mellitus Grandfather Myocardial infarction Grandfather No problems noted. Grandmother Breast cancer Denies family history of Ovarian cancer Prostate cancer Colorectal cancer Social History Smoking Status: Current every day smoker Tobacco Type: Cigars Age Started Using Tobacco: 12; Age Quit Using Tobacco: 56; packs per day: 2; Cigarettes Per Day: 8; Second Hand Exposure: No; Hx Alcohol Use: Yes Alcohol type: beer Alcohol Intake Frequency: 4 or More x per/Week Hx Substance Use: No Preferred Language: Bhutanese Communication Ability: Effective Visual Impairment: No Limitations Hearing Ability: Normal Rd Lab Technician Required: No Beliefs That Will Affect Care: None marital status: Current Living Situation: Spouse Current Living Situation Comment: Owns home current occupational status: employed 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 How many Children do You have: 4 Other Information That Helps Us Care for You: No Feels Safe at Home: Yes Safety Concerns: Feels Safe At This Time Childhood Exposure to Second-Hand Smoke: Yes caffeine: Yes during the past year weight has: remained stable Dental Care, Regularly: Yes Physical Activity Frequency: 1-2 Times per Week Seatbelt Use: sometimes Sunscreen Use: Yes (SOMETIMES) Assistive Devices: None Review of Systems Review of Systems: All systems reviewed & are unremarkable except as noted in HPI & below Physical Exam Physical Exam: General: Comfortable HEENT: Sclerae anicteric Lungs: Clear to auscultation Cardiac: Regular rate and rhythm, no murmurs or rubs. No JVD Vascular: 2+ radial, DP pulses. No bruits Abdomen: Soft, nontender Extremities: Well perfused, Small lump with surrounding erythema over posterior aspect of right calf, minimal associated tenderness. No significant edema. Intact distal pulses. Neuro: Nonfocal Psych: Alert orient x3, normal affect and mood Results & Data ([facility]) Vital Signs (Past 12 Hours) Vital Signs Temp Pulse Pulse Resp BP Pulse Ox O2 Del Method 12/10/22 09:00 73 12/10/22 07:41 98.2 F 89 18 149/87 H 95 Room Air 12/10/22 07:03 70 16 97 Room Air 12/10/22 02:59 97.9 F 86 20 150/81 H 94 Room Air 12/10/22 00:25 64 12/09/22 22:54 Room Air 12/09/22 22:30 97.5 F L 78 22 148/92 H 97 Room Air 12/09/22 22:11 66 20 124/68 94 Room Air 12/09/22 22:01 65 PG Care Time/CCT Total # of Minutes Spent Total Time Spent with Patient: Total time spent is greater than 50% in coordination of care (as documented) at patient's floor/unit and/or counseling patient: Coding Level of Care Code INP/OBS CONSULT LVL 4, 60 MIN Diagnoses Pericardial effusion I31.39
--- NOTE | 2022-12-10 11:32 | XCELERA ---
[id number]
--- NOTE | 2022-12-10 17:41 | Discharge Summary ---
Date of Service December 10, 2022 Admission HPI Per Admitting Provider The patient is a 62-year-old male with a past medical history including pericardial effusion, hypertension, GERD, erectile dysfunction, and tobacco use disorder. He reports that since his admission on 10/16/2022 where he was diagnosed with a loculated pericardial effusion, he has never really returned to normal breathing pattern, and has always been short of breath. He has continued to take ibuprofen 600 mg p.o. every 8 hours and colchicine 0.6 mg p.o. twice daily, along with his other usual medications. On the advice of cardiology consult by the ED over the telephone, patient will be admitted for repeat e chocardiogram and assessment of pericardial effusion. Principal Diagnosis Chest pain acute VT ruled out Pericardial effusion deemed chronic Discharge Exam Patient's cardiac exam is regular there is no pericardial rub heard or murmurs. Lung exam is clear. Discharge Data Allergies Allergy/AdvReac Type Severity Reaction Status Date / Time morphine Allergy Severe anaphalyaxi Verified 12/09/22 18:48 s Consultations 12/09/22 20:34 ED Decision to Admit Stat 12/09/22 22:45 Consult Cardiology Routine Ordered Studies 12/09/22 17:43 US venous doppler LE RT Stat Hospital Course (1) Acute pericardial effusion: Pericardial effusion- Continue colchicine 0.6 mg p.o. twice daily Cardiology recommends continuing ibuprofen as an outpatient we will follow-up in short duration in 1 week's time Repeat echocardiogram reviewed and consult cardiology, Dr. Ibarra saw the patient who has seen the patient for follow-up since the pericardial effusion began feels he stable for discharge. (2) COPD with acute exacerbation: Wheezing on presentation has diminished in acute COPD exacerbation has remitted Patient will not be sent home on steroids at this time, he feels back to his baseline Patient will not be sent home on antibiotics at this time as he has no productive cough or other infectious symptomatology (3) Alcohol abuse: Alcohol abuse-chronic with significant risk of withdrawal occurs. Vital signs are stable Patient averages 6-7 drinks daily Patient with counseling regarding his tobacco and alcohol cessation (4) Hypoglycemia: (5) Hypertension: Chronic stable continue management Continue amlodipine and lisinopril (6) Tobacco use disorder: Tobacco abuse-chronic Patient has pulmonary nodule that will need to be followed, and a significant part of his symptomatology with COPD exacerbation is likely being triggered by tobacco use Cessation counseling (7) Pulmonary nodule, right: Pulmonary nodule- 9 mm right upper lobe pulmonary nodule noted on CTA of chest on 10/15/2022 Advised by radiology was to repeat CT in 6 months from that date If patient breathing is improved enough that he can lie flat for long of interval time, could repeat CT this admission. Total Time Total Time Spent Total Time Spent (In Minutes): It required greater than 30 minutes to prepare this patient for discharge Discharge Plan Discharge Items Patient Disposition: Home - Self-Care Reason For Visit: COPD EXACERBATION, PERICARDIAL EFFUSION Discharge Diagnosis: lower leg swellilng with history of pericardial effusion Activity: Resume your previous activity Non-emergency contact: Primary Care Provider Call non-emergency contact if: your symptoms worsen Follow-up/Referrals: Ramírez Ibarra MD [Physician] - 12/15/22 10:00 am Issac España DO [Primary Care Provider] - 12/14/22 9:20 am Diet: Low Sodium (2gm) Addtl Attending Provider Instructions: please resume and continue your medications for your pericardial effusion, follow up with Dr Ibarra on 12/15/22 as scheduled consider a low salt diet, and strongly consider reducing your tobacco and alcohol use with a goal of stopping all together when you are resting consider elevating your feet you do have a pulmonary nodule seen on previous chest imaging, be sure you family doctor continues to follow this with outpt chest imaging Pending Studies at Discharge: No Stand-Alone Forms: My [facility] [email or web address], Smoking Cessation Medications and DC Order Prescriptions: Continued amlodipine 5 mg tablet 5 mg PO DAILY Qty: 30 2RF lisinopril 40 mg tablet 40 mg PO DAILY Qty: 30 5RF pantoprazole [Protonix] 40 mg tablet,delayed release (DR/EC) 40 mg PO DAILY 60 Days Qty: 60 1RF hydroxyzine HCl 25 mg tablet 25 mg PO TID PRN (Reason: anxiety) Qty: 30 2RF colchicine [Colcrys] 0.6 mg tablet 0.6 mg PO BID 90 Days Qty: 180 0RF ibuprofen 600 mg Tablet 600 mg PO Q8H Qty: 0 0RF sildenafil (pulm.hypertension) 20 mg tablet 20 - 100 mg PO .COMPLEX PRN (Reason: Sexual Activity) Rx Instructions: 20 - 100 mg PO ; administer doses at least 4-6 hours apart Discharge Orders: Discharge Order (Routine); Ordered 12/10/22 Ordered By: Car Quigley Admission Data Admit Date/Time: 12/09/22 21:44 Attending Provider: Car Quigley Admit Provider: [place] Sanchez Primary Care Provider: Issac España Other Providers: [place] Sanchez ; Ramírez Ibarra Other Interventions: Discharge Summary Assessment (RN) Last Done: 12/10/22 11:08 Coding Level of Care Code HOSP INP/OBS DISCH >30 MIN Diagnoses Acute pericardial effusion I30.9 COPD with acute exacerbation J44.1 Alcohol abuse F10.10 Hypoglycemia E16.2 Hypertension I10 Tobacco use disorder F17.200 Pulmonary nodule, right R91.1
== END 2022-12-10 11:57 | disposition home or self-care (01) | DRG 315 ==
LOC: ED 17:35 → 2S 21:44 → SUATTDRO 21:44 → INTOOBSV 21:44 → 2S 22:24